=== PATIENT | female | born 1995 | race Caucasian/White ===

== ENCOUNTER 2020-05-19 21:56 | Emergency (ER) | payer OTHER ==
[~2020-05-19] VITALS: Ht 157.5 cm; Wt 80.0 kg
[~2020-05-19 21:56] MED LIST: CIPROFLOXACN500 MG PO; CLOTRIMAZOLE13 EX; FLEXERIL PO; KETOROLAC10 MG PO; LORTAB5 PO; NO HOME MEDS; PRILOSEC20 MG/CAP PO; PROTONIX40 M2 PO; PYRIDIUM200 MG PO; SPRINTEC 2828 DAY PO; ULTRAM50 M1 PO; ZOFRAN ODT4 MG OR; [UNRECOGNIZED DRUG - OTHER] PO
[2020-05-19 23:33] LABS: HEMATOCRIT 33.7 % (37.0-47.0); HEMOGLOBIN 10.9 g/dl (12.0-16.0); IMMATURE GRANULOCYTES 0.2 % (0.0-5.0); MEAN CELL VOLUME 85.8 fL CALC (80.0-100.0); MEAN CORPUSCULAR HGB 27.7 pG CALC (26.0-32.0); MEAN CORPUSCULAR HGB CONC 32.3 g/dL CAL (32.0-36.0); NEUT# 5.44 thou/uL (2.00-7.15); RED BLOOD COUNT 3.93 mill/uL (4.20-5.60); RED CELL DISTRI WIDTH 12.6 % (11.5-15.5)
[2020-05-19 23:51] LABS: ALBUMIN 4.2 g/dL (3.2-5.0); ALKALINE PHOSPHATASE 76 u/l (38-126); AMYLASE 41 u/l (30-110); ANION GAP 11 (6-22 (CALC)); BILIRUBIN, TOTAL 0.5 mg/dL (0.0-1.4); BUN 13 mg/dL (7-17); BUN/CREATININE RATIO 13 (12-20 (CALC)); CARBON DIOXIDE 26 mmol/l (22-30); CHLORIDE 103 mmol/l (95-108); GFR > 60 ML/MIN (>=60 (CALC)); GFR FOR AFR.AMER. > 60 ML/MIN (>=60 (CALC)); LIPASE 47 u/l (23-300); POTASSIUM 3.5 mmol/l (3.5-5.1); SGOT/AST 16 u/l (14-36); SODIUM 136 mmol/l (137-146); TOTAL PROTEIN 7.4 g/dL (6.3-8.2)
[2020-05-20 02:12] LABS: URINE BILIRUBIN - DIPSTICK NEGATIVE (NEGATIVE); URINE BLOOD DIPSTICK NEGATIVE (NEGATIVE); URINE COLOR YELLOW; URINE GLUCOSE - DIPSTICK NEGATIVE (NEGATIVE); URINE KETONE NEGATIVE (NEGATIVE); URINE LEUK ESTERASE NEGATIVE (NEGATIVE); URINE PH 5.5 (4.5-8.0); URINE PROTEIN - DIPSTICK NEGATIVE (NEG-TRACE); URINE UROBILINOGEN - DIPSTICK 0.2 E.U./dL (0.2)
[2020-05-20 02:15] LABS: URINE NITRITE - DIPSTICK NEGATIVE (Negative)
[2020-05-20 03:29] VITALS: BP 106/55
== END 2020-05-20 03:35 | disposition home or self-care (01) ==
LOC: ED 21:56
PROVIDERS: Emergency Medicine
DX: R10.84 Generalized abdominal pain (principal); Z20.822 Contact with and (suspected) exposure to COVID-19
CPT/HCPCS: Q9967